=== PATIENT | male | born 1985 | race Caucasian/White ===

== ENCOUNTER 2019-05-17 21:22 | Emergency (ER) | payer BC, MEDICAID ==
[~2019-05-17] VITALS: Ht 185.4 cm; Wt 83.9 kg
--- NOTE | 2019-05-17 21:25 | NUR ---
ED Nurse Note: PT BROUGHT IN BY AMBULANCE. PER EMT PT WAS FOUND ACTNG [place]IZARRE ON THE [address]RE[address]. PT STATED HIS FRIEND GAVE HIM SOMETHING TO DRINK AND HE BECAME THE WAY HE IS RIGHT NOW. PT IS ALERT ORIENTED X2 AT THIS TIME. ABLE TO FOLLOW DIRECTION. PT SEEM AGGITATED, UNABLE TO SIT STILL
[2019-05-17 21:26] VITALS: BP 105/66
[2019-05-17] MEDS ORDERED: LORazepam Inj 2mg/ml 1ml IV ONE (21:30)
[2019-05-17] MEDS ORDERED: DiphenhydrAMINE 50mg/ml Inj IVP ONE (21:30)
--- NOTE | 2019-05-17 21:30 | Emergency Room Report ---
History of Present Illness General Chief Complaint: Substance Abuse Source: Patient Present Illness HPI Disclaimer: Please note that this report is being documented using [employer] technology. This can lead to erroneous entry secondary to incorrect interpretation by the dictating instrument. HPI: 34-year-old male with unknown medical history presents for evaluation of altered mental status. Patient was reportedly behaving erratically on the street and police were called. The police found him pacing around, agitated and tachycardic. EMS arrived finding him tachycardic in the 130s. Patient admits to using drugs and repeatedly states "I am high" but refused to say what drugs he has taken. No complaints from the patient aside from stating that he is high. He is uncooperative with history and physical exam due to agitation. Cannot obtain any other information from the patient. PMH: Unknown PSH: Unknown Allergies: Penicillin noted in medical chart Social Hx: Unknown Allergies: Coded Allergies: PENICILLINS (Verified Allergy, Unknown, 08/23/17) Nursing Documentation-PMH Hx Asthma: Yes History Of Psychiatric Problem: Yes Review of Systems All Other Systems: limited - Patient uncooperative Physical Exam Vital Signs Date Time Temp Pulse Resp B/P (MAP) Pulse Ox O2 Delivery O2 Flow Rate FiO2 05/17/19 21:19 98.4 132 23 140/108 (119) 100 Room Air General: Awake and alert, agitated, flailing extremities, handcuffs to gurney him afebrile HEENT: NC/AT. EOMI. Cardiovascular: Tachycardia, rate in the 130s. S1 and S2 normal. No murmur appreciated Resp: Tachypnea. Normal work of breathing. No cough, wheezing or crackles appreciated Abdomen: Abdomen is soft, nondistended. Nontender Skin: Intact. No abrasions, laceration or rash over the exposed skin MSK: Normal tone and bulk. Moving all extremities. No obvious deformity. Neuro: Awake, altered. GCS 15. Erratic twitching of the upper and lower extremities as well as the facial muscles. Unable to stay still in bed Medical Decision Making Diagnostic Impression: Primary Impression: Amphetamine abuse Additional Impressions: Tachycardia Left against medical advice UTI (urinary tract infection) ER Course Is a 34-year-old male brought in by police and EMS for altered mental status with suspicion of substance abuse. The patient states that he has high that he took drugs but will not say which ones. He is tachycardic, mildly diaphoretic and tachypneic. Suspect either amphetamines or other stimulant. Will require IV hydration and sedation. Have ordered Ativan and diphenhydramine. We will start broad metabolic, infectious and tox work-up to rule out other causes of tachycardia aside from substance abuse. There is no evidence of trauma do not believe he requires emergent imaging. He can advance work-up as needed based on reassessment. Laboratory Tests Test 05/17/19 21:23 05/17/19 21:33 White Blood Count 10.1 K/UL (4.8-10.8) Red Blood Count 5.64 M/UL (4.70-6.10) Hemoglobin 15.8 G/DL (14.2-18.0) Hematocrit 46.8 % (42.0-52.0) Mean Corpuscular Volume 83 FL (80-99) Mean Corpuscular Hemoglobin 28.0 PG (27.0-31.0) Mean Corpuscular Hemoglobin Concent 33.7 G/DL (32.0-36.0) Red Cell Distribution Width 11.0 % (11.6-14.8) L Platelet Count 320 K/UL (150-450) Mean Platelet Volume 4.8 FL (6.5-10.1) L Neutrophils (%) (Auto) 71.8 % (45.0-75.0) Lymphocytes (%) (Auto) 14.7 % (20.0-45.0) L Monocytes (%) (Auto) 8.9 % (1.0-10.0) Eosinophils (%) (Auto) 3.3 % (0.0-3.0) H Basophils (%) (Auto) 1.3 % (0.0-2.0) Sodium Level 144 MMOL/L (136-145) Potassium Level 4.8 MMOL/L (3.5-5.1) Chloride Level 106 MMOL/L (98-107) Carbon Dioxide Level 28 MMOL/L (21-32) Anion Gap 10 mmol/L (5-15) Blood Urea Nitrogen 23 mg/dL (7-18) H Creatinine 1.3 MG/DL (0.55-1.30) Estimate Glomerular Filtration Rate > 60 mL/min (>60) Glucose Level 95 MG/DL (74-106) Lactic Acid Level 1.20 mmol/L (0.4-2.0) Calcium Level 9.3 MG/DL (8.5-10.1) Total Bilirubin 0.7 MG/DL (0.2-1.0) Aspartate Amino Transferase (AST) 21 U/L (15-37) Alanine Aminotransferase (ALT) 23 U/L (12-78) Alkaline Phosphatase 91 U/L (46-116) Total Creatine Kinase 127 U/L (26-308) Troponin I 0.000 ng/mL (0.000-0.056) Total Protein 9.5 G/DL (6.4-8.2) H Albumin 3.7 G/DL (3.4-5.0) Globulin 5.8 g/dL Albumin/Globulin Ratio 0.6 (1.0-2.7) L Salicylates Level 0.3 ug/mL (2.8-20) L Acetaminophen Level < 2 MCG/ML (10-30) L Serum Alcohol < 3 mg/dL Urine Color Yellow Urine Appearance Clear Urine pH 5 (4.5-8.0) Urine Specific [place] 1.025 (1.005-1.035) Urine Protein 2+ (NEGATIVE) H Urine Glucose (UA) Negative (NEGATIVE) Urine Ketones 1+ (NEGATIVE) H Urine Blood 3+ (NEGATIVE) H Urine Nitrite Negative (NEGATIVE) Urine Bilirubin Negative (NEGATIVE) Urine Urobilinogen 4 MG/DL (0.0-1.0) H Urine Leukocyte Esterase 1+ (NEGATIVE) H Urine RBC 15-20 /HPF (0 - 0) H Urine WBC 10-15 /HPF (0 - 0) H Urine Squamous Epithelial Cells Moderate /LPF (NONE/OCC) H Urine Amorphous Sediment Moderate /LPF (NONE) H Urine Bacteria Moderate /HPF (NONE) H Urine Opiates Screen Negative (NEGATIVE) Urine Barbiturates Screen Negative (NEGATIVE) Phencyclidine (PCP) Screen Negative (NEGATIVE) Urine Amphetamines Screen Positive (NEGATIVE) H Urine Benzodiazepines Screen Negative (NEGATIVE) Urine Cocaine Screen Negative (NEGATIVE) Urine Marijuana (THC) Screen Negative (NEGATIVE) Reevaluation Time: 03:27 Last Vital Signs Date Time Temp Pulse Resp B/P (MAP) Pulse Ox O2 Delivery O2 Flow Rate FiO2 05/17/19 21:19 98.4 132 23 140/108 (119) 100 Room Air Reevaluation Impression Labs have returned largely within normal limits, negative lactate, negative troponin and CK is within normal limits as well. The patient is receiving continuous IV fluids for tachycardia. Unfortunately, an EKG was not performed on his initial evaluation because of his agitation and and failure to cooperate. Patient now is refusing any further EKG or testing and is electing to sign out AGAINST MEDICAL ADVICE. He is awake, alert, oriented to person, place, time into his situation. He states that he was mistakenly given some amphetamines earlier today and that he did not intentionally take them. He denied any SI/HI and he denied any current chest pain, palpitations, shortness of breath, diaphoresis, lightheadedness/headache or any other changes in his health. He said that he would return to the emergency department if there is any change in his condition however at this time he felt his heart rate would take too long to normalize in the emergency department that he had "somewhere to be." We pulled himself off monitor but did sign discharge paperwork. I included several detox and substance abuse contact numbers in his discharge paperwork as well as several clinics in the area and strongly encouraged him to return to the emergency department for reevaluation at any time however he left before his discharge paperwork were printed including his prescription for antibiotics for urinary tract infection. Antibiotics were sent to his pharmacy that was on record. We will call him in the morning to tell him. 0630: Patient was called on his listed phone number and a voicemail was left instructing him to proceed to the pharmacy to pick up man his prescription for antibiotic to treat a possible urinary tract infection. Also directed him to return to the emergency department for reevaluation of any new or worsening symptoms. Disposition: AGAINST MEDICAL ADVICE Condition: Stable Scripts Cephalexin* (KEFLEX*) 500 Mg Capsule 500 MG ORAL EVERY 12 HOURS for 7 Days, #14 CAP 0 Refills Prov: Vaibhav Morley MD 05/18/19 Vaibhav Morley MD May 17, 2019 21:30
[2019-05-17 21:48] LABS: BASOPHILS % (AUTO) 1.3 % (0.0-2.0); EOSINOPHILS % (AUTO) 3.3 % (0.0-3.0); HEMATOCRIT 46.8 % (42.0-52.0); HEMOGLOBIN 15.8 G/DL (14.2-18.0); LYMPHOCYTES % (AUTO) 14.7 % (20.0-45.0); MEAN CORPUSCULAR VOLUME 83 FL (80-99); MONOCYTES % (AUTO) 8.9 % (1.0-10.0); NEUTROPHILS % (AUTO) 71.8 % (45.0-75.0); PLATELET COUNT 320 K/UL (150-450); RED BLOOD COUNT 5.64 M/UL (4.70-6.10); WHITE BLOOD COUNT 10.1 K/UL (4.8-10.8)
[2019-05-17 21:55] LABS: ANION GAP 10 mmol/L (5-15); BLOOD UREA NITROGEN 23 mg/dL (7-18); CALCIUM 9.3 MG/DL (8.5-10.1); CARBON DIOXIDE 28 MMOL/L (21-32); CHLORIDE 106 MMOL/L (98-107); CREATININE 1.3 MG/DL (0.55-1.30); POTASSIUM 4.8 MMOL/L (3.5-5.1); SODIUM 144 MMOL/L (136-145)
[2019-05-17 21:59] LABS: ALANINE AMINOTRANSFERASE 23 U/L (12-78); ALBUMIN 3.7 G/DL (3.4-5.0); ALBUMIN/GLOBULIN RATIO 0.6 (1.0-2.7); ALKALINE PHOSPHATASE 91 U/L (46-116); ASPARTATE AMINO TRANSFERASE 21 U/L (15-37); BILIRUBIN,TOTAL 0.7 MG/DL (0.2-1.0); CREATINE KINASE 127 U/L (26-308)
[2019-05-17 22:46] LABS: APPEARANCE,URINE CLEAR; BILIRUBIN, URINE NEGATIVE (NEGATIVE); GLUCOSE, URINE (UA) NEGATIVE (NEGATIVE); KETONES,URINE 1+ (NEGATIVE); LEUKOCYTE ESTERASE ,URINE 1+ (NEGATIVE); NITRITE,URINE NEGATIVE (NEGATIVE); PH,URINE 5 (4.5-8.0); PROTEIN,URINE 2+ (NEGATIVE); UROBILINOGEN,URINE 4 MG/DL (0.0-1.0)
[2019-05-17 22:47] LABS: COLOR,URINE YELLOW
--- NOTE | 2019-05-17 23:08 | NUR ---
ED Nurse Note: pt in bed, playing with his tablet. no acute distress is noted.
[2019-05-18 00:02] VITALS: BP 130/66
--- NOTE | 2019-05-18 00:24 | NUR ---
AMA: SEE AMA FORM.Iv and name band removed.
--- NOTE | 2019-05-18 01:30 | NUR ---
ED Nurse Note: pt in bed, awake. juice, water and sandwich given.
[2019-05-18 02:10] VITALS: BP 123/66
[2019-05-18 03:24] VITALS: BP 128/81
[2019-05-18] MEDS ORDERED: CEPHALEXIN500 MG ORAL (03:45)
== END 2019-05-18 00:24 | disposition home or self-care (01) ==
LOC: EDBD 21:22 → EMR 21:34
DX: F15.10 Other stimulant abuse, uncomplicated (principal); N39.0 Urinary tract infection, site not specified; R00.0 Tachycardia, unspecified; J45.909 Unspecified asthma, uncomplicated; Z88.0 Allergy status to penicillin
CPT/HCPCS: 36415; 80053; 80196; 80307; 80329; 81003; 82550; 83605; 84484; 85025; 87086; 96361; 96374; 96375; J1200; Z7502; 99284